=== PATIENT | female | born 1970 | race Two or more races ===

== ENCOUNTER 2020-05-30 11:17 | Emergency (ER) | payer BC, OTHER ==
[~2020-05-30] VITALS: Ht 167.6 cm; Wt 122.9 kg
[2020-05-30 11:55] VITALS: BP 145/95
[2020-05-30 12:05] LABS: Urine Bacteria NONE SEEN /hpf (None Seen); Urine Blood Negative /uL (Negative); Urine Mucus FEW (None Seen); Urine WBC 9 /hpf (0 - 5)
== END 2020-05-30 13:15 | disposition home or self-care (01) ==
LOC: ER 11:17
DX: N39.0 Urinary tract infection, site not specified (principal); I25.10 Atherosclerotic heart disease of native coronary artery without angina pectoris
CPT/HCPCS: 81001; 93005